=== PATIENT | female | born 1945 | race Caucasian/White ===

== ENCOUNTER 2020-12-20 10:13 | Outpatient (CLI) | payer MEDICARE, MEDICAID | END 2020-12-20 10:14 | disposition home or self-care (01) | LOC: CSHWCC 10:13 | PROVIDERS: ATTEND Nurse Practitioner Family | DX: I87.313 Chronic venous hypertension (idiopathic) with ulcer of bilateral lower extremity (principal); I87.2 Venous insufficiency (chronic) (peripheral); E11.622 Type 2 diabetes mellitus with other skin ulcer; L97.219 Non-pressure chronic ulcer of right calf with unspecified severity; L97.229 Non-pressure chronic ulcer of left calf with unspecified severity; I89.0 Lymphedema, not elsewhere classified; R60.0 Localized edema; E03.8 Other specified hypothyroidism; E11.628 Type 2 diabetes mellitus with other skin complications; E78.2 Mixed hyperlipidemia; J44.9 Chronic obstructive pulmonary disease, unspecified; Z91.19 Patient's noncompliance with other medical treatment and regimen | CPT/HCPCS: 99213; G0463 ==

== ENCOUNTER 2021-01-10 10:28 | Outpatient (CLI) | payer MEDICARE, OTHER | END 2021-01-10 10:29 | disposition home or self-care (01) | LOC: CSHWCC 10:28 | PROVIDERS: ATTEND Nurse Practitioner Family | DX: I87.313 Chronic venous hypertension (idiopathic) with ulcer of bilateral lower extremity (principal); I87.2 Venous insufficiency (chronic) (peripheral); E11.622 Type 2 diabetes mellitus with other skin ulcer; L97.219 Non-pressure chronic ulcer of right calf with unspecified severity; L97.229 Non-pressure chronic ulcer of left calf with unspecified severity; I89.0 Lymphedema, not elsewhere classified; R60.0 Localized edema; E03.8 Other specified hypothyroidism; E11.628 Type 2 diabetes mellitus with other skin complications; E78.2 Mixed hyperlipidemia; J44.9 Chronic obstructive pulmonary disease, unspecified; Z91.19 Patient's noncompliance with other medical treatment and regimen | CPT/HCPCS: 97139; G0463; 99213 ==

== ENCOUNTER 2021-10-11 15:34 | Inpatient (IN) | payer OTHER, MEDICAID ==
[2021-10-11 16:33] LABS: #Basophils 0.1 10x3/uL (0.0-0.2); #Monocytes 1.1 10x3/uL (0.0-1.1); #Neutrophils 12.6 10x3/uL (1.5-8.4); %Basophils 0.4 % (0.0-2.0); %Eosinophils 0.1 % (0.0-6.0); %Lymphocytes 7.8 % (18.0-47.0); %Neutrophils 82.5 % (40.0-75.0); Hemoglobin 13.8 g/dL (12.0-15.5); Mean Corpuscular HGB CONC 32.7 g/dL (32.0-36.0); Mean Corpuscular Hemoglobin 30.7 pg (27.0-33.0); Mean Platelet Volume 10.2 fl (7.4-10.4); Platelet Count 317 10x3/uL (150-450); RBC Distribution Width 15.6 % (11.5-14.5); Red Blood Cell (RBC) Count 4.49 10x6/uL (3.90-5.03); White Blood Cell (WBC) Count 15.3 10x3/uL (3.5-10.5)
[2021-10-11 16:46] LABS: ALT (SGPT) 11 U/L (8-55); AST (SGOT) 14 U/L (5-34); Albumin 3.5 g/dL (3.4-4.8); Alkaline Phosphatase 96 U/L (40-110); Anion Gap 20 mmol/L (10-20); BUN (Urea Nitrogen) 62 mg/dL (9.8-20.1); Bilirubin, Total 0.8 mg/dL (0.2-1.2); Calc. Creatinine Clearance 0 mL/min (70-130); Calcium 8.6 mg/dL (7.8-10.44); Carbon Dioxide 26 mmol/L (23-31); Chloride 99 mmol/L (98-107); Globulin 4.1 g/dL (2.4-3.5); Glucose 196 mg/dL (83-110); Potassium 4.5 mmol/L (3.5-5.1); Protein, Total 7.6 g/dL (5.8-8.1); Sodium 140 mmol/L (136-145)
[2021-10-11] MEDS ORDERED: Senokot S 8.6-50 MG TAB PO PRN (19:54)
[2021-10-11] MEDS ORDERED: Ventolin HFA Inhaler 60 PUFF INHALER INH PRN (20:01)
[2021-10-11] MEDS ORDERED: Dextrose 5% in Water 1,000 ML IV PRN (20:19)
[2021-10-11] MEDS ORDERED: Dextrose 50% Abboject 50 ML SYRINGE SLOW IVP PRN (20:19)
[2021-10-11] MEDS ORDERED: Dexamethasone 1 MG TAB PO SCH (23:00)
[2021-10-11] MEDS ORDERED: Atorvastatin Calcium 40 MG TAB PO SCH (23:15)
[2021-10-11] MEDS ORDERED: Lantus 1000 UNITS/10 ML VIAL SC SCH (23:15)
[2021-10-12 05:02] LABS: #Monocytes 0.7 10x3/uL (0.0-1.1); #Neutrophils 11.7 10x3/uL (1.5-8.4); %Basophils 0.3 % (0.0-2.0); %Eosinophils 0.1 % (0.0-6.0); %Lymphocytes 5.5 % (18.0-47.0); %Monocytes 5.1 % (0.0-10.0); %Neutrophils 87.3 % (40.0-75.0); Hemoglobin 12.1 g/dL (12.0-15.5); Mean Corpuscular HGB CONC 31.8 g/dL (32.0-36.0); Mean Corpuscular Hemoglobin 30.7 pg (27.0-33.0); Mean Corpuscular Volume 96.4 fl (81.6-98.3); Mean Platelet Volume 10.1 fl (7.4-10.4); Platelet Count 293 10x3/uL (150-450); RBC Distribution Width 15.6 % (11.5-14.5); Red Blood Cell (RBC) Count 3.94 10x6/uL (3.90-5.03); White Blood Cell (WBC) Count 13.4 10x3/uL (3.5-10.5)
[2021-10-12 05:05] LABS: Anion Gap 15 mmol/L (10-20); BUN (Urea Nitrogen) 57 mg/dL (9.8-20.1); Calc. Creatinine Clearance 50 mL/min (70-130); Calcium 8.4 mg/dL (7.8-10.44); Carbon Dioxide 29 mmol/L (23-31); Chloride 101 mmol/L (98-107); Glucose 163 mg/dL (83-110); Potassium 4.1 mmol/L (3.5-5.1); Sodium 141 mmol/L (136-145)
[2021-10-12] MEDS: Levothyroxine 150 MCG TAB PO SCH (06:48)
[2021-10-12] MEDS: HumaLOG 300 UNITS/3 ML VIAL SC PRN ×3 (06:49→20:54)
[2021-10-12] MEDS: Levothyroxine Sodium 25 MCG TAB PO SCH (06:49)
[2021-10-12] MEDS: Furosemide 40 MG TAB PO SCH (06:49)
[2021-10-12] MEDS: Mometasone 200 MCG/Formoterol 5 MCG 120 PUFF INHALER INH SCH (07:25)
[2021-10-12] MEDS: Alogliptin 6.25 MG TAB PO SCH (08:17)
[2021-10-12] MEDS: Dexamethasone 1 MG TAB PO SCH (08:18)
[2021-10-12] MEDS: Enoxaparin Sodium 40 MG/0.4 ML SYRINGE SC SCH (08:19)
[2021-10-12] MEDS ORDERED: Artificial Tear Sol 15 ML BOT EA EYE PRN (11:32)
[2021-10-12] MEDS ORDERED: Ondansetron PF 4 MG/2 ML Vial IVP PRN (11:32)
[2021-10-12] MEDS ORDERED: Loratadine 10 MG TAB PO PRN (11:32)
[2021-10-12] MEDS ORDERED: Sodium Chloride 0.65% Nasal 44 ML BOT EA NARE PRN (11:32)
[2021-10-12] MEDS ORDERED: Cepastat Lozenges 1 LOZ PO PRN (11:32)
[2021-10-12] MEDS ORDERED: GUAIFENESIN SF SOLN 200 MG/10 ML UDCUP PO PRN (11:32)
[2021-10-12] MEDS ORDERED: Ondansetron ODT 4 MG TAB PO PRN (11:32)
[2021-10-12] MEDS ORDERED: hydrALAZINE 20 MG/ML VIAL SLOW IVP PRN (11:32)
[2021-10-12] MEDS ORDERED: Loperamide HCl 2 MG CAP PO PRN (11:32)
[2021-10-12] MEDS ORDERED: Calcium Carbonate 500 MG ChewTAB PO PRN (11:32)
[2021-10-12] MEDS ORDERED: HYDROcodone/Acetaminophen 5/325 mg Tablet PO PRN (11:32)
[2021-10-12] MEDS ORDERED: Hydrocerin (Eucerin) Cream 120 gm Jar TOP PRN (11:32)
[2021-10-12] MEDS: Acetaminophen 325 MG TAB PO PRN ×2 (12:21→18:45)
[2021-10-12] MEDS: Atorvastatin Calcium 40 MG TAB PO SCH (20:45)
[2021-10-12] MEDS: Zolpidem Tartrate 5 MG TAB PO PRN (20:45)
[2021-10-12] MEDS: Lantus 1000 UNITS/10 ML VIAL SC SCH (20:55)
[2021-10-13] MEDS: Levothyroxine Sodium 25 MCG TAB PO SCH (05:03)
[2021-10-13] MEDS: Levothyroxine 150 MCG TAB PO SCH (05:03)
[2021-10-13] MEDS: Mometasone 200 MCG/Formoterol 5 MCG 120 PUFF INHALER INH SCH ×3 (09:23→20:37)
[2021-10-13] MEDS: Alogliptin 6.25 MG TAB PO SCH (10:43)
[2021-10-13] MEDS: Enoxaparin Sodium 40 MG/0.4 ML SYRINGE SC SCH (10:43)
[2021-10-13] MEDS: Furosemide 40 MG TAB PO SCH (10:45)
[2021-10-13] MEDS: Dexamethasone 1 MG TAB PO SCH (10:49)
[2021-10-13] MEDS: HumaLOG 300 UNITS/3 ML VIAL SC PRN (17:15)
[2021-10-13] MEDS: Atorvastatin Calcium 40 MG TAB PO SCH (20:42)
[2021-10-13] MEDS: Acetaminophen 325 MG TAB PO PRN (20:42)
[2021-10-13] MEDS: Zolpidem Tartrate 5 MG TAB PO PRN (20:46)
[2021-10-13] MEDS: Lantus 1000 UNITS/10 ML VIAL SC SCH (21:12)
[2021-10-14] MEDS: Nystatin Powder 15 GM BOT TOP SCH ×2 (00:04→09:18)
[2021-10-14] MEDS: Levothyroxine Sodium 25 MCG TAB PO SCH (06:14)
[2021-10-14] MEDS: Levothyroxine 150 MCG TAB PO SCH (06:16)
[2021-10-14] MEDS: Furosemide 40 MG TAB PO SCH (06:40)
[2021-10-14 06:43] LABS: Anion Gap 15 mmol/L (10-20); BUN (Urea Nitrogen) 65 mg/dL (9.8-20.1); CRP (Inflammatory) 5.34 mg/dL (= or < 0.5); Calc. Creatinine Clearance 37 mL/min (70-130); Calcium 8.3 mg/dL (7.8-10.44); Carbon Dioxide 29 mmol/L (23-31); Chloride 95 mmol/L (98-107); Glucose 108 mg/dL (83-110); Potassium 3.4 mmol/L (3.5-5.1); Sodium 136 mmol/L (136-145)
[2021-10-14 06:53] LABS: #Monocytes 0.8 10x3/uL (0.0-1.1); #Neutrophils 8.2 10x3/uL (1.5-8.4); %Basophils 0.1 % (0.0-2.0); %Eosinophils 0.4 % (0.0-6.0); %Lymphocytes 12.6 % (18.0-47.0); %Monocytes 7.4 % (0.0-10.0); %Neutrophils 78.9 % (40.0-75.0); Hemoglobin 12.1 g/dL (12.0-15.5); Mean Corpuscular HGB CONC 31.7 g/dL (32.0-36.0); Mean Corpuscular Hemoglobin 30.5 pg (27.0-33.0); Mean Corpuscular Volume 96.2 fl (81.6-98.3); Mean Platelet Volume 10.3 fl (7.4-10.4); Platelet Count 293 10x3/uL (150-450); RBC Distribution Width 15.7 % (11.5-14.5); Red Blood Cell (RBC) Count 3.97 10x6/uL (3.90-5.03); White Blood Cell (WBC) Count 10.4 10x3/uL (3.5-10.5)
[2021-10-14] MEDS: Mometasone 200 MCG/Formoterol 5 MCG 120 PUFF INHALER INH SCH (07:31)
[2021-10-14] MEDS ORDERED: Dexamethasone 1 MG TAB PO SCH (09:00)
[2021-10-14] MEDS ORDERED: Enoxaparin Sodium 30 MG/0.3 ML SYRINGE SC SCH (09:00)
[2021-10-14] MEDS: Alogliptin 6.25 MG TAB PO SCH (09:18)
[2021-10-14] MEDS: Dexamethasone 1 MG TAB PO SCH (09:19)
[2021-10-14 16:12] VITALS: BP 118/74; TEMP 98.3
== END 2021-10-14 17:30 | disposition home health service (06) | DRG 189 ==
LOC: CSHERS 15:34 → CSHTELE 23:04
PROVIDERS: ADMIT Family Medicine; ATTEND Internal Medicine
DX: J96.21 Acute and chronic respiratory failure with hypoxia (principal); J98.11 Atelectasis; D72.829 Elevated white blood cell count, unspecified; E11.9 Type 2 diabetes mellitus without complications; E03.9 Hypothyroidism, unspecified; C32.9 Malignant neoplasm of larynx, unspecified; J44.9 Chronic obstructive pulmonary disease, unspecified; I51.89 Other ill-defined heart diseases; Z79.4 Long term (current) use of insulin; Z88.8 Allergy status to other drugs, medicaments and biological substances; Z88.1 Allergy status to other antibiotic agents; Z79.82 Long term (current) use of aspirin; Z79.899 Other long term (current) drug therapy; Z93.0 Tracheostomy status; Z93.1 Gastrostomy status; Z90.49 Acquired absence of other specified parts of digestive tract; Z98.51 Tubal ligation status; Z90.89 Acquired absence of other organs; Z87.891 Personal history of nicotine dependence
CPT/HCPCS: 36415; 36416; 71045; 80048; 83735; 83880; 85025; 86140; 93005; 94640; 94664; 94760; J1650; J1815; J1956; J8540